=== PATIENT | female | born 1955 | race Caucasian/White ===

== ENCOUNTER 2016-05-29 11:57 | Outpatient (CLI) | payer BC | END 2016-05-29 11:58 | disposition home or self-care (01) | DX: R53.83 Other fatigue (principal); B19.20 Unspecified viral hepatitis C without hepatic coma; R74.8 Abnormal levels of other serum enzymes ==

== ENCOUNTER 2016-07-19 08:00 | Outpatient (CLI) | payer BC | END 2016-07-19 23:59 | DX: R30.0 Dysuria (principal) ==

== ENCOUNTER 2017-04-02 11:47 | Emergency (ER) | payer BC ==
--- NOTE | 2017-04-02 13:34 | ED Physician Documentation ---
History of Present Illness - Stated complaint Stated Complaint: L RIB PX - Chief complaint Chief Complaint: General - Additonal information Additional information: 61-year-old female presents to the emergency department with left lower chest pain 1 week after following and landing on a gun rack. Her pain was initially more bearable, she did not have a sneezing fit that worsened her pain 2 days ago. She has had no fevers, no productive cough. She was prescribed [place] by her primary care doctor has taken 1 pill at night for the last few days with minimal relief of symptoms. She is not taking any other medications. Review of Systems Constitutional: denies: Fever Cardiac: reports: Other (left lateral chest pain, no substernal chest pain) Respiratory: reports: Other (no pain with inspiration). denies: Cough GI: reports: Other (Vomiting 1 3 nights ago). denies: Abdominal Pain : denies: Hematuria Neurologic: reports: Other (No injuries other than the left lower chest pain) PD PAST MEDICAL HISTORY - Past Medical History Cardiovascular: Hypertension Respiratory: None Neuro: None Endocrine/Autoimmune: None GI: GERD, Hepatitis : Chronic bladder infection HEENT: None Psych: None Musculoskeletal: None Derm: None - Past Surgical History Past Surgical History: Yes General: Cholecystectomy, Appendectomy, Colonoscopy Ortho: Knee replacement HEENT: Other - Present Medications Home Medications: Ambulatory Orders Medication Instructions Recorded Confirmed Amlodipine Besylate/Benazepril 1 cap PO DAILY 10/17/13 04/02/17 [Amlodipine-Benazepril 10-20 mg] Pantoprazole Sodium [Protonix] 40 mg PO DAILY 10/17/13 04/02/17 Ledipasvir/Sofosbuvir [Harvoni 1 tab PO DAILY 02/15/16 04/02/17 90-400 mg Tablet] Levothyroxine Sodium 100 mcg PO DAILY 02/15/16 04/02/17 Albuterol Sulf [Ventolin Hfa 1 - 2 puffs INH Q4HR PRN #1 inhaler 02/22/16 Inhaler] Azithromycin [Zithromax] 250 mg PO DAILY #6 tablet 02/22/16 04/02/17 HYDROcod/ACETAM 5/325 [[place] 5/325] 1 - 2 ea PO Q6H PRN #15 tablet 02/22/1604/07 Dexamethasone [Decadron] 4 mg PO DAILY #5 tablet 02/24/16 04/02/17 Naproxen 375 mg PO BID #14 tablet 02/24/16 04/02/17 oxyCODONE [Roxicodone] 1 - 2 mg PO Q6H #25 tablet 02/24/16 04/02/17 Lidocaine Patch 5% [Lidoderm Patch] 1 patch TOP DAILY #10 patch 04/02/17 Naproxen [Naprosyn] 500 mg PO BID PRN #20 tablet 04/02/17 Oxycodone HCl/Acetaminophen 1 - 2 each PO Q6H PRN #14 tablet 04/02/17 [Percocet 5-325 mg Tablet] - Allergies Allergies/Adverse Reactions: Allergies Allergy/AdvReac Type Severity Reaction Status Date / Time dextromethorphan Allergy Hallucinati Verified 02/24/16 07:16 ons lisinopril AdvReac Intermediate COUGH Verified 02/24/16 07:16 hydrocodone bitartrate * AdvReac Itching Verified 02/24/16 07:16 [From Vicodin] - Social History Does the pt smoke?: No Smoking Status: Never smoker Does the pt drink ETOH?: Yes Does the pt have substance abuse?: No - Immunizations Immunizations are current?: Yes - POLST Patient has POLST: No PD ED PE NORMAL - Vitals Vital signs reviewed: Yes - General General: Alert and oriented X 3, No acute distress - HEENT HEENT: Atraumatic - Neck Neck: Supple, no meningeal sign - Cardiac Cardiac: RRR, No murmur - Respiratory Respiratory: Clear bilaterally, Other (Left lower chest with tenderness to palpation, Mild overlying bruising.) - Abdomen Abdomen: Normal bowel sounds, Soft, Non tender, Non distended - Derm Derm: Warm and dry - Extremities Extremities: No deformity - Neuro Neuro: Alert and oriented X 3 - Psych Psych: Normal mood, Normal affect Results - Vitals Vitals: Vital Signs - 24 hr 04/02/17 04/02/17 04/02/17 11:54 14:04 14:24 Temperature 36.3 C L Heart Rate 82 74 Respiratory 20 18 Rate Blood Pressure 171/106 H 148/123 H 144/93 H O2 Saturation 97 98 Oxygen O2 Source Room air - Rads (name of study) ribs, chest left Radiology: Final report received (No evidence of displaced rib fracture. No focal infiltrate or pneumothorax.), EMP read indepedently, See rad report, Other PD MEDICAL DECISION MAKING - ED course ED course: 61-year-old female presents 1 week after rib injury with ongoing pain, pain was acutely worsened by a sneezing fit.Patient has been taking minimal medications for pain control, she was provided with an incentive spirometer, a Lidoderm patch, IM morphine and Toradol.Chest x-ray without pneumothorax or pneumonia or effusion. Rib fractures not seen however area of pain is an area of many overlying structures. Discussed with patient likelihood that she does have rib fracture and treatment for this as well as expectant management and return precautions for signs of pneumonia.While these are lower ribs I do not suspect that she has an intra- abdominal injury given the chronicity of her symptoms and injury at this time and lack of abdominal tenderness and normal vital signs with the exception of hypertension likely related to pain. She also has not taken any of her antihypertensives today. Departure - Departure Disposition: 01 Home, Self Care Clinical Impression: Rib injury Condition: Good Instructions: Spirometer Incentive, Fx Rib Follow-Up: Rere Mcwilliams MD [Primary Care Provider] - Prescriptions: Lidocaine Patch 5% [Lidoderm Patch] 1 patch TOP DAILY #10 patch Naproxen [Naprosyn] 500 mg PO BID PRN #20 tablet PRN Reason: Pain Oxycodone HCl/Acetaminophen [Percocet 5-325 mg Tablet] 1 - 2 each PO Q6H PRN # 14 tablet PRN Reason: Pain Comments: You may have a rib fracture or just a severe bruise. These often are not seen on chest x-ray. However the treatment is the same, you should have your pain under control enough that you can take deep breaths with your incentive spirometer at least every hour while you are awake. This will help to prevent pneumonia and help you measure your pain. Return to the emergency department if you develop signs of pneumonia such as fever or cough, different chest pain, difficulty breathing or significant abdominal pain.
[2017-04-02] MEDS ORDERED: MORPHINE 10 MG/ML VIAL IM STA (14:11)
[2017-04-02] MEDS ORDERED: LIDOCAINE PATCH 5% TOP PRN (14:11)
[2017-04-02] MEDS ORDERED: KETOROLAC 30 MG/ML VIAL IM STA (14:12)
[2017-04-02] MEDS ORDERED: ACETAMINOPHEN 500 MG TABLET PO STA (14:13)
--- NOTE | 2017-04-02 14:14 | XRAY Preliminary Report ---
Exam: XR RIBS W/PA CHEST LT IMPRESSION: No evidence of displaced rib fracture. No focal infiltrate or pneumothorax. [facility] SITE ID: [id number]
--- NOTE | 2017-04-02 14:16 | XRAY Report ---
EXAM: LEFT RIB RADIOGRAPHY EXAM DATE: 04/02/2017 02:03 PM. CLINICAL HISTORY: Rib pain. COMPARISON: 03/25/2017. TECHNIQUE: 1 view of the chest and 2 views of the ribs. FINDINGS: Bones: No evidence of displaced rib fracture. Lungs: No evidence of acute infiltrate or effusion. No pneumothorax. Mediastinum: Heart and mediastinal contours are unremarkable. Other: There is a moderate-sized hiatal hernia. IMPRESSION: No evidence of displaced rib fracture. No focal infiltrate or pneumothorax. [facility] Referring Provider Line: [phone] SITE ID: [id number]
[2017-04-02 14:24] VITALS: BP 144/93
[2017-04-02] MEDS ORDERED: KETOROLAC 30 MG/ML VIAL ONE (14:32)
[2017-04-02] MEDS ORDERED: ACETAMINOPHEN 325 MG TABLET PO ONE (14:32)
[2017-04-02] MEDS ORDERED: MORPHINE 10 MG/ML VIAL ONE (14:32)
[2017-04-02] MEDS ORDERED: LIDOCAINE PATCH 5% TOP ONE (14:33)
[2017-04-02] MEDS ORDERED: ACETAMINOPHEN 500 MG TABLET PO ONE (14:42)
== END 2017-04-02 15:10 | disposition home or self-care (01) ==
LOC: ED 11:47
DX: S29.9XXA Unspecified injury of thorax, initial encounter (principal); W19.XXXA Unspecified fall, initial encounter; W22.09XA Striking against other stationary object, initial encounter; I10 Essential (primary) hypertension
CPT/HCPCS: 71101; 96372; 99283; 99284; A9270

== ENCOUNTER 2017-09-23 08:00 | Outpatient (CLI) | payer BC | END 2017-09-23 08:01 | disposition home or self-care (01) | LOC: LAB.R 08:00 | PROVIDERS: ATTEND Physician Assistant | DX: N39.0 Urinary tract infection, site not specified (principal) | CPT/HCPCS: 87077; 87086; 87181 ==

== ENCOUNTER 2018-05-28 08:59 | Outpatient (CLI) | payer BC ==
[2018-05-28 12:12] LABS: BASOPHILS # (AUTO) 0.1 10^3/uL (0.0-0.1); BASOPHILS % (AUTO) 1.3 %; EOSINOPHILS # (AUTO) 0.4 10^3/uL (0.0-0.7); HGB - HEMOGLOBIN 14.5 g/dL (12.0-16.0); LYMPHOCYTES # (AUTO) 1.9 10^3/uL (1.5-3.5); MEAN CORPUSCULAR HEMOGLOBIN 31.3 pg (27.0-31.0); MEAN CORPUSCULAR HGB CONC 34.2 g/dL (32.0-36.0); MEAN CORPUSCULAR VOLUME 91.5 fL (81.0-99.0); MEAN PLATELET VOLUME 9.1 fL (7.9-10.8); MONOCYTES # (AUTO) 0.5 10^3/uL (0.0-1.0); MONOCYTES % (AUTO) 6.7 %; NEUTROPHILS # (AUTO) 4.7 10^3/uL (1.5-6.6); PLT - PLATELET COUNT 253 10^3/uL (130-450); RED BLOOD COUNT 4.63 10^6/uL (4.20-5.40); RED CELL DISTRIBUTION WIDTH 13.2 % (12.0-15.0); WHITE BLOOD COUNT 7.6 x10^3/uL (4.8-10.8)
[2018-05-28 12:51] LABS: ALBUMIN/GLOBULIN RATIO 0.9 (1.0-2.2); ALKALINE PHOSPHATASE 53 IU/L (42-121); ALT ALANINE AMINOTRANSFERASE 30 IU/L (10-60); AST ASPARTATE AMINOTRANSFERASE 45 IU/L (10-42); BILIRUBIN,TOTAL 0.8 mg/dL (0.2-1.0); BUN - BLOOD UREA NITROGEN 10 mg/dL (6-20); CALCIUM 9.1 mg/dL (8.5-10.3); CARBON DIOXIDE - CO2 25 mmol/L (21-32); CHLORIDE 98 mmol/L (101-111); CHOL/HDL RATIO 4.2 (<4.4); CHOLESTEROL 215 mg/dL; CREATININE 0.7 mg/dL (0.4-1.0); GFR - MDRD 84 (>89); GLUCOSE 110 mg/dL (70-100); HDL CHOLESTEROL 51 mg/dL; LDL CHOLESTEROL,CALCULATED 110 mg/dL; LDL/HDL RATIO 2.2 (<4.4); SODIUM 139 mmol/L (135-145); TOTAL PROTEIN 8.5 g/dL (6.7-8.2); VLDL CHOLESTEROL 54 mg/dL
[2018-05-28 12:54] LABS: HB2 TOTAL 15.8 g/dL; HEMOGLOBIN A1C 0.48 g/dL; HEMOGLOBIN A1C % 4.9 % (4.6-6.2)
== END 2018-05-28 09:00 | disposition home or self-care (01) ==
LOC: LAB.WCP 08:59
PROVIDERS: ATTEND Family Medicine
DX: I10 Essential (primary) hypertension (principal); D50.9 Iron deficiency anemia, unspecified; E03.9 Hypothyroidism, unspecified; R73.09 Other abnormal glucose
CPT/HCPCS: 36415; 80053; 80061; 83036; 83721; 84443; 85025

== ENCOUNTER 2020-04-04 07:00 | Outpatient (CLI) | payer BC ==
[2020-04-04 12:53] LABS: BASOPHILS # (AUTO) 0.1 10^3/uL (0.0-0.1); BASOPHILS % (AUTO) 1.1 %; EOSINOPHILS # (AUTO) 0.3 10^3/uL (0.0-0.7); EOSINOPHILS % (AUTO) 3.5 %; HGB - HEMOGLOBIN 15.3 g/dL (12.0-16.0); LYMPHOCYTES # (AUTO) 1.9 10^3/uL (1.5-3.5); LYMPHOCYTES % (AUTO) 25.7 %; MEAN CORPUSCULAR HEMOGLOBIN 31.1 pg (27.0-31.0); MEAN CORPUSCULAR HGB CONC 33.1 g/dL (32.0-36.0); MEAN CORPUSCULAR VOLUME 93.9 fL (81.0-99.0); MEAN PLATELET VOLUME 11.1 fL (7.9-10.8); MONOCYTES # (AUTO) 0.5 10^3/uL (0.0-1.0); MONOCYTES % (AUTO) 7.1 %; NEUTROPHILS # (AUTO) 4.6 10^3/uL (1.5-6.6); NEUTROPHILS % (AUTO) 62.3 %; PLT - PLATELET COUNT 263 10^3/uL (130-450); RED BLOOD COUNT 4.92 10^6/uL (4.20-5.40); RED CELL DISTRIBUTION WIDTH 12.8 % (12.0-15.0); WHITE BLOOD COUNT 7.4 x10^3/uL (4.8-10.8)
[2020-04-04 13:20] LABS: ALBUMIN 4.2 g/dL (3.2-5.5); ALBUMIN/GLOBULIN RATIO 1.1 (1.0-2.2); BILIRUBIN,TOTAL 0.9 mg/dL (0.2-1.0); CREATININE 0.7 mg/dL (0.4-1.0); TOTAL PROTEIN 8.2 g/dL (6.7-8.2)
[2020-04-04 13:26] LABS: FERRITIN 36.5 ng/mL (11.0-306.8)
[2020-04-04 14:10] LABS: FREE T4 (FREE THYROXINE) 1.15 ng/dL (0.58-1.64)
[2020-04-04 18:43] LABS: CREATININE,URINE 276.1 mg/dL; MICROALBUM/CREATININE RATIO,UR 2.5 ug/mg (<30.0); MICROALBUMIN,URINE 0.7 mg/dL (0-300.0)
== END 2020-04-04 23:59 | disposition home or self-care (01) ==
LOC: EDBD → LAB.WCP 07:00
PROVIDERS: ATTEND Family Medicine
DX: R74.8 Abnormal levels of other serum enzymes (principal); D50.9 Iron deficiency anemia, unspecified; E03.9 Hypothyroidism, unspecified; B19.20 Unspecified viral hepatitis C without hepatic coma; R73.03 Prediabetes
CPT/HCPCS: 36415; 80053; 81599; 82043; 82570; 82607; 82728; 83036; 83540; 84439; 84443; 84466; 85025; 87517; 87521; 87522; 87902

== ENCOUNTER 2020-04-14 07:15 | Outpatient (CLI) | payer BC ==
[2020-04-14 14:51] LABS: MICROALBUM/CREATININE RATIO,UR 3.5 ug/mg (<30.0); MICROALBUMIN,URINE 0.3 mg/dL (0-300.0)
== END 2020-04-14 23:59 | disposition home or self-care (01) ==
LOC: LAB.R 07:15
PROVIDERS: ATTEND Family Medicine
DX: R73.03 Prediabetes (principal)
CPT/HCPCS: 82043; 82570

== ENCOUNTER 2021-01-25 08:00 | Outpatient (CLI) | payer BC | END 2021-01-25 23:59 | disposition home or self-care (01) | LOC: LAB.WCP 08:00 | PROVIDERS: ATTEND Family Medicine | DX: N39.0 Urinary tract infection, site not specified (principal) | CPT/HCPCS: 87077; 87086; 87181 ==

== ENCOUNTER 2021-05-16 09:30 | Outpatient (CLI) | payer BC ==
[2021-05-16 12:26] LABS: BASOPHILS # (AUTO) 0.1 10^3/uL (0.0-0.1); BASOPHILS % (AUTO) 1.5 %; EOSINOPHILS # (AUTO) 0.3 10^3/uL (0.0-0.7); HCT - HEMATOCRIT 34.7 % (37.0-47.0); LYMPHOCYTES # (AUTO) 1.3 10^3/uL (1.5-3.5); LYMPHOCYTES % (AUTO) 19.7 %; MEAN CORPUSCULAR HEMOGLOBIN 29.4 pg (27.0-31.0); MEAN CORPUSCULAR HGB CONC 31.7 g/dL (32.0-36.0); MEAN CORPUSCULAR VOLUME 92.8 fL (81.0-99.0); MEAN PLATELET VOLUME 11.1 fL (7.9-10.8); MONOCYTES # (AUTO) 0.5 10^3/uL (0.0-1.0); MONOCYTES % (AUTO) 7.7 %; NEUTROPHILS # (AUTO) 4.4 10^3/uL (1.5-6.6); NEUTROPHILS % (AUTO) 65.8 %; PLT - PLATELET COUNT 193 10^3/uL (130-450); RED BLOOD COUNT 3.74 10^6/uL (4.20-5.40); RED CELL DISTRIBUTION WIDTH 16.6 % (12.0-15.0); WHITE BLOOD COUNT 6.6 x10^3/uL (4.8-10.8)
[2021-05-16 14:00] LABS: % IRON SATURATION 5 % (20-50); ALBUMIN/GLOBULIN RATIO 0.9 (1.0-2.2); ALKALINE PHOSPHATASE 64 IU/L (42-121); ALT ALANINE AMINOTRANSFERASE 17 IU/L (10-60); AST ASPARTATE AMINOTRANSFERASE 48 IU/L (10-42); BUN - BLOOD UREA NITROGEN 13 mg/dL (6-20); CARBON DIOXIDE - CO2 26 mmol/L (21-32); CHLORIDE 98 mmol/L (101-111); CHOL/HDL RATIO 3.7 (<4.4); CHOLESTEROL 208 mg/dL; CREATININE 0.7 mg/dL (0.4-1.0); GFR - MDRD 84 (>89); GLUCOSE 148 mg/dL (70-100); HDL CHOLESTEROL 56 mg/dL; IRON 23 ug/dL (28-170); LDL CHOLESTEROL,CALCULATED 109 mg/dL; LDL/HDL RATIO 1.9 (<4.4); POTASSIUM 3.3 mmol/L (3.5-5.0); SODIUM 137 mmol/L (135-145); TOTAL IRON BINDING CAPACITY 494 ug/dL (250-450); TOTAL PROTEIN 8.6 g/dL (6.7-8.2); TRANSFERRIN 353 mg/dL (192-382); TRIGLYCERIDES 215 mg/dL; VLDL CHOLESTEROL 43 mg/dL
[2021-05-16 14:59] LABS: THYROID STIMULATING HORMONE 23.05 uIU/mL (0.34-5.60)
[2021-05-16 15:04] LABS: FERRITIN 21.5 ng/mL (11.0-306.8)
[2021-05-16 18:48] LABS: FREE T4 (FREE THYROXINE) 0.82 ng/dL (0.58-1.64)
[2021-05-16 19:46] LABS: ESTIMATED AVERAGE GLUCOSE 108 mg/dL (70-100); HEMOGLOBIN A1c% 5.4 % (4.27-6.07)
== END 2021-05-16 23:59 | disposition home or self-care (01) ==
LOC: LAB.WCP 09:30
PROVIDERS: ATTEND Physician Assistant Medical
DX: R74.8 Abnormal levels of other serum enzymes (principal); D50.9 Iron deficiency anemia, unspecified; E03.9 Hypothyroidism, unspecified; R73.03 Prediabetes
CPT/HCPCS: 36415; 80053; 80061; 82728; 83036; 83540; 83721; 84439; 84443; 84466; 85025

== ENCOUNTER 2021-07-10 13:54 | Outpatient (CLI) | payer BC ==
[2021-07-10 17:37] LABS: BASOPHILS # (AUTO) 0.1 10^3/uL (0.0-0.1); BASOPHILS % (AUTO) 1.3 %; EOSINOPHILS # (AUTO) 0.2 10^3/uL (0.0-0.7); EOSINOPHILS % (AUTO) 2.8 %; HCT - HEMATOCRIT 31.4 % (37.0-47.0); HGB - HEMOGLOBIN 9.8 g/dL (12.0-16.0); LYMPHOCYTES # (AUTO) 1.3 10^3/uL (1.5-3.5); LYMPHOCYTES % (AUTO) 24.6 %; MEAN CORPUSCULAR HEMOGLOBIN 26.7 pg (27.0-31.0); MEAN CORPUSCULAR HGB CONC 31.2 g/dL (32.0-36.0); MEAN CORPUSCULAR VOLUME 85.6 fL (81.0-99.0); MONOCYTES # (AUTO) 0.5 10^3/uL (0.0-1.0); MONOCYTES % (AUTO) 8.3 %; NEUTROPHILS # (AUTO) 3.4 10^3/uL (1.5-6.6); NEUTROPHILS % (AUTO) 62.8 %; PLT - PLATELET COUNT 190 10^3/uL (130-450); RED BLOOD COUNT 3.67 10^6/uL (4.20-5.40); RED CELL DISTRIBUTION WIDTH 16.3 % (12.0-15.0); WHITE BLOOD COUNT 5.5 x10^3/uL (4.8-10.8)
[2021-07-10 17:56] LABS: BILIRUBIN,TOTAL 0.7 mg/dL (0.2-1.0); CALCIUM 9.3 mg/dL (8.5-10.3); CREATININE 0.7 mg/dL (0.4-1.0); POTASSIUM 3.7 mmol/L (3.5-5.0); TOTAL PROTEIN 8.1 g/dL (6.7-8.2)
[2021-07-10 18:14] LABS: THYROID STIMULATING HORMONE 0.67 uIU/mL (0.34-5.60)
== END 2021-07-10 13:55 | disposition home or self-care (01) ==
LOC: LAB.N 13:54
PROVIDERS: ATTEND Physician Assistant Medical
DX: E03.9 Hypothyroidism, unspecified (principal); R74.8 Abnormal levels of other serum enzymes; D50.9 Iron deficiency anemia, unspecified
CPT/HCPCS: 36415; 80053; 84443; 85025

== ENCOUNTER 2021-08-13 12:57 | Outpatient (CLI) | payer BC | END 2021-08-13 12:58 | disposition critical access hospital (66) | LOC: EMS 12:57 | DX: R62.7 Adult failure to thrive (principal); R45.851 Suicidal ideations; R53.1 Weakness; F32.A Depression, unspecified; R52 Pain, unspecified; S40.011A Contusion of right shoulder, initial encounter; M25.562 Pain in left knee; W19.XXXA Unspecified fall, initial encounter; Z72.89 Other problems related to lifestyle | CPT/HCPCS: A0425; A0429 ==

== ENCOUNTER 2021-08-13 13:14 | Emergency (ER) | payer BC ==
--- NOTE | 2021-08-13 13:41 | ED Physician Documentation ---
History of Present Illness - Stated complaint Stated Complaint: GEN WEAKNESS - Chief complaint Chief Complaint: General - History obtained from History obtained from: Patient - Additonal information Additional information: 63-year-old woman with history of alcoholism, depression, hypothyroidism presents by ambulance. The main thing she seeks evaluation for his depression. She has had a lot of loss recently and this culminated in her brother dying by suicide a week ago. She has been drinking a lot of alcohol and not sleeping well. This is despite taking escitalopram and trazodone. She has had a couple of alcohol fueled falls in the last week, one on Saturday where she injured her right clavicle and and possibly her neck and one a couple of days ago where she injured her left knee. She notes a significant weight loss in the last 6 to 8 months associated with hair falling out and some dry skin. She had abnormal thyroid studies a few months ago but was not compliant with her thyroid medication but has been compliant with her thyroid medication since then but stopped it about 5 days ago. Review of Systems Ten Systems: 10 systems reviewed and negative Constitutional: denies: Fever, Chills Eyes: reports: Reviewed and negative Ears: reports: Reviewed and negative Nose: reports: Reviewed and negative PD PAST MEDICAL HISTORY - Past Medical History Cardiovascular: Hypertension Respiratory: None Endocrine/Autoimmune: None GI: GERD, Hepatitis : Chronic bladder infection HEENT: None Psych: None Musculoskeletal: None Derm: None - Past Surgical History Past Surgical History: Yes General: Cholecystectomy, Appendectomy, Colonoscopy Ortho: Knee replacement HEENT: Other - Present Medications Home Medications: Ambulatory Orders Medication Instructions Recorded Confirmed Amlodipine Besylate/Benazepril 1 cap PO DAILY 10/17/13 04/02/17 [Amlodipine-Benazepril 10-20 mg] Pantoprazole Sodium [Protonix] 40 mg PO DAILY 10/17/13 04/02/17 Ledipasvir/Sofosbuvir [[place] 1 tab PO DAILY 02/15/16 04/02/17 90-400 mg Tablet] Levothyroxine Sodium 100 mcg PO DAILY 02/15/16 04/02/17 Albuterol Sulf [Ventolin Hfa 1 - 2 puffs INH Q4HR PRN #1 inhaler 02/22/16 04/02/17 Inhaler] Azithromycin [Zithromax] 250 mg PO DAILY #6 tablet 02/22/16 04/02/17 HYDROcod/ACETAM 5/325 [[place] 5/325] 1 - 2 ea PO Q6H PRN #15 tablet 02/22/16 04/02/17 Naproxen 375 mg PO BID #14 tablet 02/24/16 04/02/17 dexAMETHasone [Decadron] 4 mg PO DAILY #5 tablet 02/24/16 04/02/17 oxyCODONE [Roxicodone] 1 - 2 mg PO Q6H #25 tablet 02/24/16 04/02/17 Lidocaine Patch 5% [Lidoderm Patch] 1 patch TOP DAILY #10 patch 04/02/17 Naproxen [Naprosyn] 500 mg PO BID PRN #20 tablet 04/02/17 Oxycodone HCl/Acetaminophen 1 - 2 each PO Q6H PRN #14 tablet 04/02/17 [Percocet 5-325 mg Tablet] Nitrofurantoin [Macrobid] 1 cap PO BID #10 cap 08/13/21 - Allergies Allergies/Adverse Reactions: Allergies Allergy/AdvReac Type Severity Reaction Status Date / Time dextromethorphan Allergy Hallucinati Verified 02/24/16 07:16 ons lisinopril AdvReac Intermediate COUGH Verified 02/24/16 07:16 hydrocodone bitartrate * AdvReac Itching Verified 02/24/16 07:16 [From Vicodin] - Social History Does the pt smoke?: No Smoking Status: Never smoker Does the pt drink ETOH?: Yes Does the pt have substance abuse?: No - Immunizations Immunizations are current?: Yes - POLST Patient has POLST: No PD ED PE NORMAL - Vitals Vital signs reviewed: Yes - General General: Alert and oriented X 3 (Slightly slow slurred speech and bloodshot eyes with nystagmus consistent with alcohol intoxication) - HEENT HEENT: PERRL - Neck Neck: Supple, no meningeal sign, No bony TTP - Cardiac Cardiac: RRR, No murmur - Respiratory Respiratory: No respiratory distress, Clear bilaterally - Abdomen Abdomen: Normal bowel sounds, Soft, Non tender - Derm Derm: Normal color, Warm and dry - Extremities Extremities: Other (Significant bruising and tenderness about the right clavicle unable to range the right shoulder. Mild effusion and tenderness of the left knee without bruising) - Neuro Neuro: Alert and oriented X 3, Normal speech Eye Opening: Spontaneous Motor: Obeys Commands Verbal: Oriented GCS Score: 15 Results - Vitals Vitals: Vital Signs - 24 hr 08/13/21 08/13/21 08/13/21 13:27 13:31 15:31 Temperature 36.9 C 36.9 C Heart Rate 81 81 91 Respiratory 18 18 17 Rate Blood Pressure 132/79 H 132/79 H 133/82 H O2 Saturation 100 100 100 Oxygen O2 Source Room air - Labs Labs: Laboratory Tests 08/13/21 08/13/21 08/13/21 14:45 14:45 15:01 WBC 7.8 RBC 3.90 L Hgb 10.0 L Hct 31.9 L MCV 81.8 MCH 25.6 L MCHC 31.3 L RDW 16.2 H Plt Count 161 MPV 8.6 Neut # (Auto) 5.6 Lymph # (Auto) 1.3 L [place] # (Auto) 0.6 Eos # (Auto) 0.2 Baso # (Auto) 0.1 Absolute Nucleated RBC 0.00 Nucleated RBC % 0.0 Sodium 137 Potassium 3.6 Chloride 98 L Carbon Dioxide 20 L Anion Gap 19.0 H BUN 15 Creatinine 0.9 Estimated GFR (MDRD) 63 L Glucose 101 H Calcium 9.2 Total Bilirubin 0.9 AST 37 ALT 16 Alkaline Phosphatase 53 Total Protein 8.6 H Albumin 4.0 Globulin 4.6 H Albumin/Globulin Ratio 0.9 L Lipase 44 TSH 6.33 H Salicylates < 6.0 Acetaminophen < 10 L Ethyl Alcohol 26.8 - Rads (name of study) CT head and c spine Radiology: EMP read contemporaneously (CT head and C-spine, no evidence of traumatic injury. Atrophy and chronic ischemic change in the head and reversal of cervical lordosis and grade 1 anterior spondylolisthesis at C6-C7) PD MEDICAL DECISION MAKING - ED course ED course: 63-year-old woman presents by ambulance. She has had several falls lately in the setting of alcoholism. She is also quite depressed from recent loss. She had some symptoms that could have been referable to hyperthyroidism but she is mildly hypothyroidism noting that she has been not completely compliant with her thyroid medication and she was advised to continue this at the current dose and recheck with her physician. She was found to have a clavicular picture and placed in a sling and follow-up was advised. Seen by the social services director who counseled on outpatient counseling resources and alcohol resources. Patient felt too weak to go home and was offered a detention stay but after discussion with the social services director eventually declined that. She requested prescription painkillers. Given the ongoing alcoholism I discussed with her and her that I did not think was safe to prescribe prescription painkillers and that it would be safest if she stuck to [id number] pain medication. She then mentioned before discharge that she had urinary burning frequency and urgency. She was unable to provide a urine sample here but given the typical symptoms seems reasonable to treat her for cystitis. Departure - Departure Disposition: Home, Self Care Clinical Impression: Alcoholism, Fall, Clavicle fracture, sternal end Condition: Good Record reviewed to determine appropriate education?: Yes Instructions: ED Fx Clavicle, ED Alcohol Abuse Follow-Up: [facility] [Provider Group] Prescriptions: Nitrofurantoin [Macrobid] 1 cap PO BID #10 cap Comments: You were seen today for several falls associated with alcoholism. Thankfully the only major injury noted was a fracture at the end of your right clavicle. The treatment for this is basically staying in the sling and taking Tylenol as needed for pain and following up with orthopedics. Your major problem though is grief and depression related to recent losses. Follow the instructions of the social services director regarding follow-up and counseling. And the other major problem is alcoholism, you need to follow her instructions on that as well and abstain from alcohol. Return for new or worsening symptoms. I did send prescription for antibiotics for a bladder infection to [facility] in [place].
--- NOTE | 2021-08-13 14:22 | CT Report ---
PROCEDURE: CT cervical spine without contrast INDICATIONS: Trauma, pain TECHNIQUE: Noncontrast 3 mm thick sections acquired from the skull base to the T4 level. Sagittal and coronal r eformats were then constructed. For radiation dose reduction, the following was used: automated exp osure control, adjustment of mA and/or kV according to patient size. COMPARISON: None. FINDINGS: Image quality: Excellent. Alignment: There is reversal of the normal cervical lordosis as well as a grade 1 anterior spondyloli sthesis at C6-7. Bones: No fractures or dislocations. Visualized superior ribs are intact. Disc space narrowing not ed at C5-6, C6-7 as well as C3-4 with facet ankylosis and hypertrophic arthropathy these levels as we ll. Mild to moderate central stenosis C4-5 and C6-7 Soft tissues: Prevertebral soft tissues are normal in thickness. No paravertebral hematomas. No ap ical pneumothoraces. IMPRESSION: 1. Multilevel degenerative disc disease and arthropathy without fracture or traumatic malalignment. 2. Reversal of normal cervical lordosis and grade 1 anterior spondylolisthesis present at C6-7 Reviewed by: Theodore Castillo MD on 08/13/2021 1:21 PM SHARIF Approved by: Theodore Castillo MD on 08/13/2021 1:21 PM AKSUMIT Station ID: [id number]
--- NOTE | 2021-08-13 14:29 | CT Report ---
PROCEDURE: CT brain without contrast INDICATIONS: Trauma, pain TECHNIQUE: Noncontrast 4.5 mm thick angled axial sections acquired from the foramen magnum to the vertex. For r adiation dose reduction, the following was used: automated exposure control, adjustment of mA and/or kV according to patient size. COMPARISON: None. FINDINGS: Image quality: Excellent. CSF spaces: Basal cisterns are patent. No extra-axial fluid collections. Ventricles are normal in size and shape. Brain: No midline shift. No intracranial masses or hemorrhage. Pérez-white matter interface is norm al. Moderate atrophy and multifocal white matter chronic ischemic change noted. Atherosclerotic vasc ular calcification noted in the cavernous segments of both internal carotid arteries as well as the i ntradural vertebral arteries. Skull and face: Calvarium and visualized facial bones are intact, without suspicious lesions. Sinuses: Visualized sinuses and mastoids are clear. IMPRESSION: Atrophy and chronic ischemic change without acute hemorrhage or mass effect Reviewed by: Theodore Castillo MD on 08/13/2021 1:27 PM AKDT Approved by: Theodore Castillo MD on 08/13/2021 1:27 PM AKDT Station ID: [id number]
[2021-08-13] MEDS: THIAMINE INJ 100 MG in SODIUM CHLORIDE 0.9% 50 ML IV STA (15:05)
[2021-08-13 15:06] LABS: BASOPHILS # (AUTO) 0.1 10^3/uL (0.0-0.1); BASOPHILS % (AUTO) 0.9 %; EOSINOPHILS # (AUTO) 0.2 10^3/uL (0.0-0.7); EOSINOPHILS % (AUTO) 2.1 %; HCT - HEMATOCRIT 31.9 % (37.0-47.0); LYMPHOCYTES # (AUTO) 1.3 10^3/uL (1.5-3.5); LYMPHOCYTES % (AUTO) 17.3 %; MEAN CORPUSCULAR HEMOGLOBIN 25.6 pg (27.0-31.0); MEAN CORPUSCULAR HGB CONC 31.3 g/dL (32.0-36.0); MEAN CORPUSCULAR VOLUME 81.8 fL (81.0-99.0); MEAN PLATELET VOLUME 8.6 fL (7.9-10.8); MONOCYTES # (AUTO) 0.6 10^3/uL (0.0-1.0); MONOCYTES % (AUTO) 7.5 %; NEUTROPHILS # (AUTO) 5.6 10^3/uL (1.5-6.6); NEUTROPHILS % (AUTO) 71.8 %; PLT - PLATELET COUNT 161 10^3/uL (130-450); RED CELL DISTRIBUTION WIDTH 16.2 % (12.0-15.0); WHITE BLOOD COUNT 7.8 x10^3/uL (4.8-10.8)
[2021-08-13] MEDS: SODIUM CHLORIDE 0.9% 1,000 ML IV STA (15:07)
[2021-08-13] MEDS: KETOROLAC 15 MG/ML VIAL IVP STA (15:08)
[2021-08-13 15:21] LABS: ACETAMINOPHEN < 10 ug/mL (10-30); ALBUMIN/GLOBULIN RATIO 0.9 (1.0-2.2); ALKALINE PHOSPHATASE 53 IU/L (42-121); ALT ALANINE AMINOTRANSFERASE 16 IU/L (10-60); AST ASPARTATE AMINOTRANSFERASE 37 IU/L (10-42); BILIRUBIN,TOTAL 0.9 mg/dL (0.2-1.0); BUN - BLOOD UREA NITROGEN 15 mg/dL (6-20); CALCIUM 9.2 mg/dL (8.5-10.3); CARBON DIOXIDE - CO2 20 mmol/L (21-32); CHLORIDE 98 mmol/L (101-111); CREATININE 0.9 mg/dL (0.4-1.0); ETOH - ETHANOL 26.8 mg/dL; GFR - MDRD 63 (>89); GLUCOSE 101 mg/dL (70-100); LIPASE 44 U/L (22-51); POTASSIUM 3.6 mmol/L (3.5-5.0); SALICYLATE < 6.0 mg/dL; SODIUM 137 mmol/L (135-145); TOTAL PROTEIN 8.6 g/dL (6.7-8.2)
--- NOTE | 2021-08-13 15:24 | XRAY Report ---
PROCEDURE: Clavicle RT INDICATIONS: clavicle inj TECHNIQUE: 2 views of the clavicle were acquired. COMPARISON: None. FINDINGS: Bones: Transverse fracture through the distal clavicle noted with the superior displacement of the di stal fracture fragment Soft tissues: No suspicious soft tissue calcifications. IMPRESSION: Transverse distal clavicular fracture Reviewed by: Theodore Castillo MD on 08/13/2021 2:23 PM AKDT Approved by: Theodore Castillo MD on 08/13/2021 2:23 PM AKDT Station ID: [id number]
--- NOTE | 2021-08-13 15:25 | XRAY Report ---
PROCEDURE: Knee 4 View LT INDICATIONS: knee inj TECHNIQUE: 4 views of the left knee(s) were acquired. COMPARISON: None. FINDINGS: Bones: No fractures or dislocations. No suspicious bony lesions. Severe medial compartment joint s pace narrowing with marginal osteophyte present. Soft tissues: No joint effusion. No suspicious soft tissue calcifications. IMPRESSION: Severe osteoarthritis without fracture or joint effusion Reviewed by: Theodore Castillo MD on 08/13/2021 2:24 PM AKDT Approved by: Theodore Castillo MD on 08/13/2021 2:24 PM AKDT Station ID: [id number]
[2021-08-13 15:32] VITALS: BP 133/82
[2021-08-13] MEDS: NITROFURANTOIN MACRO 100 MG CAPSULE PO STA (16:12)
== END 2021-08-13 16:28 | disposition home or self-care (01) ==
LOC: EDUNIT# → ED 13:14
DX: F10.20 Alcohol dependence, uncomplicated (principal); S42.011A Anterior displaced fracture of sternal end of right clavicle, initial encounter for closed fracture; W19.XXXA Unspecified fall, initial encounter; Z20.822 Contact with and (suspected) exposure to COVID-19
CPT/HCPCS: 36415; 70450; 72125; 73000; 73564; 80053; 80307; 80320; 80329; 83690; 84443; 85025; 87635; 96374; 96375; 99284; A9270; J3411; J7040

== ENCOUNTER 2021-08-18 10:45 | Outpatient (CLI) | payer BC | END 2021-08-18 10:46 | disposition critical access hospital (66) | LOC: EMS 10:45 | DX: M79.641 Pain in right hand (principal); M25.531 Pain in right wrist | CPT/HCPCS: A0425; A0429 ==

== ENCOUNTER 2021-08-18 11:02 | Emergency (ER) | payer BC ==
[2021-08-18] MEDS ORDERED: DEXAMETHASONE 10 MG/ML VIAL PO STA (11:38)
[2021-08-18] MEDS ORDERED: CHERRY SYRUP 10 ML UDC PO ONE (11:38)
[2021-08-18] MEDS ORDERED: KETOROLAC 60 MG/2 ML VIAL IM STA (11:38)
--- NOTE | 2021-08-18 12:19 | XRAY Report ---
PROCEDURE: Wrist 4 View RT INDICATIONS: swelling pain no trauma TECHNIQUE: 4 views of the wrist were acquired. COMPARISON: None FINDINGS: Bones: Cortical irregularity involving dorsal aspect of proximal carpal bone concerning for subtle fr acture involving dorsal aspect of triquetrum suggests clinical correlation. No other fracture or disl ocation is noted Osteoarthritic changes are noted throughout right wrist. No suspicious bony lesions. Scaphoid view: Scaphoid is grossly intact. Soft tissues: Dorsal wrist soft tissue swelling is seen. No suspicious soft tissue calcifications. IMPRESSION: Finding is concerning for dorsal triquetral fracture with overlying soft tissue swelling. Clinical co rrelation is recommended. No other fracture or dislocation. Wrist joint osteoarthritis. Reviewed by: Alexandre Daigle MD on 08/18/2021 12:18 PM PDT Approved by: Alexandre Daigle MD on 08/18/2021 12:18 PM PDT Station ID: [id number]
[2021-08-18] MEDS ORDERED: HYDROmorphone 1 MG/ML CARPUJECT IM STA ×2 (12:38→13:22)
[2021-08-18] MEDS ORDERED: ONDANSETRON ODT 4 MG TABLET TL STA (12:38)
--- NOTE | 2021-08-18 13:26 | ED Physician Documentation ---
PD HPI UPPER EXT INJURY - Stated complaint Stated Complaint: R HAND PX - Chief complaint Chief Complaint: Ext Problem - History obtained from History obtained from: Patient, Family - History of Present Illness Location: Right, Wrist Type of injury: Other (unknown) Where injury occurred: Home Timing - onset: Last night Timing - duration: Hours Timing - details: Abrupt onset, Still present Improved by: Rest, Immobilization Worsened by: Moving, Palpating Associated symptoms: Swelling. No: Weakness, Numbness, Tingling Contributing factors: No: Anticoagulated, Prior ortho surgery Similar symptoms before: Diagnosis (fracture and carpal tunnel) Recently seen: Emergency Dept - Additonal information Additional information: 63-year-old Brenda Leary has had some recent losses including the Saturday hanging of her younger brother. She became distraught over this her drinking was more excessive than usual and she had a fall in her home fracturing her right clavicle. She went home she stopped drinking she has been on no pain medications and this morning she awoke with severe pain in her right wrist with any movement at all. She had not had significant injury to this area previously. She does not recall injuring this. She also denies any significant symptoms of alcohol withdrawal. The patient though does admit that she spent the week in bed. Her has helped her to and from the commode. This morning her pain is intolerable she is moaning and any little movement causes worsening of her pain. Review of Systems Constitutional: denies: Fever Eyes: denies: Decreased vision Ears: denies: Ear pain Nose: denies: Congestion Throat: denies: Sore throat Cardiac: denies: Chest pain / pressure, Palpitations Respiratory: denies: Dyspnea GI: denies: Abdominal Pain, Nausea, Vomiting, Constipation, Diarrhea : denies: Dysuria, Frequency Skin: reports: Other (ecchymosis to the right clavicle area). denies: Rash Musculoskeletal: reports: Extremity pain, Joint pain, Extremity swelling. denies: Neck pain, Back pain Neurologic: denies: Generalized weakness, Focal weakness, Numbness PD PAST MEDICAL HISTORY - Past Medical History Cardiovascular: Hypertension Respiratory: None Endocrine/Autoimmune: None GI: GERD, Hepatitis : Chronic bladder infection HEENT: None Psych: None Musculoskeletal: None Derm: None - Past Surgical History Past Surgical History: Yes General: Cholecystectomy, Appendectomy, Colonoscopy Ortho: Knee replacement HEENT: Other - Present Medications Home Medications: Ambulatory Orders Medication Instructions Recorded Confirmed Amlodipine Besylate/Benazepril 1 cap PO DAILY 10/17/13 04/02/17 [Amlodipine-Benazepril 10-20 mg] Pantoprazole Sodium [Protonix] 40 mg PO DAILY 10/17/13 04/02/17 Ledipasvir/Sofosbuvir [Harvoni 1 tab PO DAILY 02/15/16 04/02/17 90-400 mg Tablet] Levothyroxine Sodium 100 mcg PO DAILY 02/15/16 04/02/17 Albuterol Sulf [Ventolin Hfa 1 - 2 puffs INH Q4HR PRN #1 inhaler 02/22/16 04/02/17 Inhaler] Azithromycin [Zithromax] 250 mg PO DAILY #6 tablet 02/22/16 04/02/17 HYDROcod/ACETAM 5/325 [[place] 5/325] 1 - 2 ea PO Q6H PRN #15 tablet 02/22/16 04/02/17 Naproxen 375 mg PO BID #14 tablet 02/24/16 04/02/17 dexAMETHasone [Decadron] 4 mg PO DAILY #5 tablet 02/24/16 04/02/17 oxyCODONE [Roxicodone] 1 - 2 mg PO Q6H #25 tablet 02/24/16 04/02/17 Lidocaine Patch 5% [Lidoderm Patch] 1 patch TOP DAILY #10 patch 04/02/17 Naproxen [Naprosyn] 500 mg PO BID PRN #20 tablet 04/02/17 Oxycodone HCl/Acetaminophen 1 - 2 each PO Q6H PRN #14 tablet 04/02/17 [Percocet 5-325 mg Tablet] Nitrofurantoin [Macrobid] 1 cap PO BID #10 cap 08/13/21 Oxycodone HCl/Acetaminophen 1 - 2 each PO Q6H PRN #14 tablet 08/18/21 [Percocet 5-325 mg Tablet] - Allergies Allergies/Adverse Reactions: Allergies Allergy/AdvReac Type Severity Reaction Status Date / Time dextromethorphan Allergy Hallucinati Verified 08/18/21 11:10 ons lisinopril AdvReac Intermediate COUGH Verified 08/18/21 11:10 hydrocodone bitartrate * AdvReac Itching Verified 08/18/21 11:10 [From Vicodin] - Social History Does the pt smoke?: No Smoking Status: Never smoker Does the pt drink ETOH?: Yes Does the pt have substance abuse?: No - Immunizations Immunizations are current?: Yes - POLST Patient has POLST: No PD ED PE NORMAL - Vitals Vital signs reviewed: Yes (Hypertensive) - General General: Alert and oriented X 3, Well developed/nourished, Other (63-year-old female moaning and crying in pain) - HEENT HEENT: Atraumatic, PERRL, EOMI - Neck Neck: Supple, no meningeal sign - Cardiac Cardiac: RRR, No murmur - Respiratory Respiratory: No respiratory distress, Clear bilaterally - Abdomen Abdomen: Soft, Non tender - Derm Derm: Normal color, Warm and dry, No rash - Extremities Extremities: Other (There is significant ecchymosis to the right shoulder girdle area consistent with the recent clavicle fracture. There is no significant pain at the elbow. The wrist is tender there is some swelling dorsally. There is significant TTP over the dorsal wrist near the junction of 1st & 2nd metacar) - Neuro Neuro: Alert and oriented X 3, environmental aide 2-12 intact, No motor deficit, No sensory deficit, Normal speech Eye Opening: Spontaneous Motor: Obeys Commands Verbal: Oriented GCS Score: 15 - Psych Psych: Normal mood, Normal affect Results - Vitals Vitals: Vital Signs - 24 hr 08/18/21 08/18/21 11:06 13:00 Temperature 37.1 C Heart Rate 92 80 Respiratory 20 18 Rate Blood Pressure 128/103 H 134/80 H O2 Saturation 100 100 Oxygen O2 Source Room air - Rads (name of study) wrist Radiology: Prelim report reviewed (Impression: Finding is concerning for dorsal triquetral fracture with overlying soft tissue swelling. Clinical correlation is recommended. No other fracture or dislocation. Wrist joint osteoarthritis.), EMP read indepedently, See rad report Procedures - Splint (location) right wrist Splint applied by: Tech Type of splint: Fiberglass, Thumb spica Other: Patient tolerated well, No complications, Neurovascular intact, Good alignment PD MEDICAL DECISION MAKING - ED course Complexity details: reviewed old records, reviewed results, re-evaluated patient, considered differential, d/w patient, d/w family ED course: 63-year-old alcoholic female who has stopped drinking has had a recent fall and clavicle fracture injuring herself significantly and she has stopped drinking. She woke this morning with severe pain in her right wrist and she has exquisite pain I thought maybe she had gout when I first evaluated her and we took an x- ray which showed a triquetral fracture which is subtle and she has specific point tenderness directly over that area. I am uncertain how she fractured this but it does appear fractured and she is placed into a thumb spica splint and given a dose of Dilaudid IM. The patient's pain appeared completely out of control and out of proportion to the fracture. I am concerned that she may have developed some complex regional pain syndrome with a fracture of the clavicle the cessation of drinking and the new fracture. We were able to provide enough pain relief for the patient to get control of her pain and I have asked the patient to continue to be aggressive about her pain management. We will prescribe her 14 Percocet and I have asked her to follow-up with her primary if she needs more medication. She will follow-up with orthopedics as previously planned. Departure - Departure Disposition: Home, Self Care Clinical Impression: Right wrist fracture Qualifiers: Encounter type: initial encounter Fracture type: closed Qualified Code(s): S62.101A - Fracture of unspecified carpal bone, right wrist, initial encounter for closed fracture Condition: Stable Instructions: ED Fx Wrist General Follow-Up: Bailee Bailon PA-C [Provider Admit Priv/Credential] - Juarez Inman MD [Provider Admit Priv/Credential] - Prescriptions: Oxycodone HCl/Acetaminophen [Percocet 5-325 mg Tablet] 1 - 2 each PO Q6H PRN #14 tablet PRN Reason: pain Comments: Brenda, today it looks like you have a subtle fracture in your wrist and the recommendation is to wear the splint and follow-up with the orthopedic doctor for casting. Your pain appears to be completely out of control when you arrived to the emergency department and we have provided additional pain relief to control the pain. My recommendation is to be consistent with your administration of your pain medication and stay on top of this pain. Follow-up with DAVID Bailon for referral to the orthopedic doctor. Medication has been e- scribed to [facility] in [place].
[2021-08-18 13:53] VITALS: BP 119/80
== END 2021-08-18 13:57 | disposition home or self-care (01) ==
LOC: EDUNIT# → ED 11:02
DX: S62.111A Displaced fracture of triquetrum [cuneiform] bone, right wrist, initial encounter for closed fracture (principal); X58.XXXA Exposure to other specified factors, initial encounter
CPT/HCPCS: 29125; 73110; 96372; 99283; A9270; J1170; Q0162

== ENCOUNTER 2021-08-22 14:30 | Outpatient (CLI) | payer BC ==
--- NOTE | 2021-08-22 16:32 | XRAY Report ---
PROCEDURE: Clavicle RT INDICATIONS: RIGHT CLAVICLE FRACTURE TECHNIQUE: 2 views of the clavicle were acquired. COMPARISON: 08/13/2021 FINDINGS: Bones: No change in moderately displaced distal clavicular fracture. No suspicious bony lesions. Soft tissues: No suspicious soft tissue calcifications. IMPRESSION: No change in distal clavicular fracture. Reviewed by: Simon Coates MD on 08/22/2021 4:30 PM PDT Approved by: Simon Coates MD on 08/22/2021 4:30 PM PDT Station ID: [id number]
== END 2021-08-22 23:59 | disposition home or self-care (01) ==
LOC: DI.WOS 14:30
PROVIDERS: ATTEND Orthopaedic Surgery
DX: S42.031A Displaced fracture of lateral end of right clavicle, initial encounter for closed fracture (principal)

== ENCOUNTER 2021-09-02 09:44 | Outpatient (CLI) | payer BC ==
--- NOTE | 2021-09-02 10:15 | XRAY Report ---
PROCEDURE: Ribs w/PA Chest RT INDICATIONS: RIB PAIN, RIGHT TECHNIQUE: 3 views of the left ribs were acquired, along with a single view chest. COMPARISON: 04/02/2017 FINDINGS: Surgical changes and devices: None. Bones and chest wall: There is a mildly displaced fracture of the left anterolateral seventh rib. Mil dly to moderately displaced fracture of the left anterolateral sixth rib. No suspicious bony lesions. Overlying soft tissues appear unremarkable. Lungs and pleura: No pneumothorax. Small left pleural effusion.. Moderate left basilar airspace opac ity is present. Mediastinum: Mediastinal contours appear normal. Heart size is normal. IMPRESSION: 1. Left rib fractures. 2. Left basilar atelectasis versus pneumonia. 3. Small left pleural effusion. Reviewed by: Simon Coates MD on 09/02/2021 10:14 AM PDT Approved by: Simon Coates MD on 09/02/2021 10:14 AM PDT Station ID: [id number]
== END 2021-09-02 09:45 | disposition home or self-care (01) ==
LOC: DI.N 09:44
PROVIDERS: ATTEND Physician Assistant
DX: S22.42XA Multiple fractures of ribs, left side, initial encounter for closed fracture (principal); J90 Pleural effusion, not elsewhere classified; R91.8 Other nonspecific abnormal finding of lung field

== ENCOUNTER 2021-09-19 07:43 | Outpatient (CLI) | payer BC ==
--- NOTE | 2021-09-19 14:47 | XRAY Report ---
PROCEDURE: Clavicle RT INDICATIONS: CLAVICLE FX TECHNIQUE: 2 views of the clavicle were acquired. COMPARISON: 08/22/2021. FINDINGS: Bones: Distal right clavicle fracture is not definitely changed compared to the prior exam. The dista l fracture fragment remains slightly displaced superiorly. Soft tissues: 2 cm calcification projects over the right glenohumeral joint which may represent intra -articular loose body. IMPRESSION: Stable alignment of distal right clavicle fracture. Reviewed by: Kaycee Hernandez MD, PhD on 09/19/2021 2:46 PM PDT Approved by: Kaycee Hernandez MD, PhD on 09/19/2021 2:46 PM PDT Station ID: [id number]
--- NOTE | 2021-09-19 15:24 | XRAY Report ---
PROCEDURE: Wrist 3 View RT INDICATIONS: WRIST FX TECHNIQUE: 3 views of the wrist were acquired. COMPARISON: 3 views of the wrist dated 08/18/2021 FINDINGS: Bones: No acute fracture or dislocation. No periosteal reaction or callus to suggest healing fracture . Scaphoid view: The scaphoid appears intact. Soft tissues: No suspicious soft tissue calcifications. IMPRESSION: 1. No radiographic findings to suggest acute or subacute fracture. Reviewed by: Michell Castro MD on 09/19/2021 3:22 PM PDT Approved by: Michell Castro MD on 09/19/2021 3:22 PM PDT Station ID: [id number]
--- NOTE | 2021-09-19 15:33 | XRAY Report ---
PROCEDURE: Shoulder 3 View RT INDICATIONS: SHOUDLER PX TECHNIQUE: 4 views of the shoulder were acquired. COMPARISON: Views of the right clavicle dated 08/22/2021. FINDINGS: Bones: Distal right clavicular fracture is redemonstrated. Fracture fragments are in unchanged anatom ic alignment. There is likely early callus now visualized. No new fracture or dislocation. Soft tissues: A soft tissue calcification is associated with the anterior aspect of the shoulder join t suggesting either calcific tendinitis or an intra-articular body. In retrospect, this was present o n the chest film dated 07/20/2016 is markedly increased in size. There is a calcification which is eit her projected over the proximal humeral diaphysis or is within the bone. IMPRESSION: 1. Stable right clavicular fracture with early interval healing. 2. Questionable right calcific tendinitis versus intra-articular body. A second soft tissue calcifica tion versus bone calcification is noted within the proximal right humeral diaphysis. Dedicated views of the humerus are recommended to further characterize this finding. Reviewed by: Michell Castro MD on 09/19/2021 3:31 PM PDT Approved by: Michell Castro MD on 09/19/2021 3:31 PM PDT Station ID: [id number]
== END 2021-09-19 23:59 | disposition home or self-care (01) ==
LOC: DI.WOS 07:43
PROVIDERS: ATTEND Orthopaedic Surgery
DX: S42.031D Displaced fracture of lateral end of right clavicle, subsequent encounter for fracture with routine healing (principal)

== ENCOUNTER 2021-10-17 08:00 | Outpatient (CLI) | payer BC ==
--- NOTE | 2021-10-17 17:12 | XRAY Report ---
PROCEDURE: Clavicle RT INDICATIONS: CLAVICLE FX TECHNIQUE: 2 views of the clavicle were acquired. COMPARISON: Right clavicle 09/19/2021, 09/02/2021 FINDINGS: Bones: Mildly displaced distal right clavicular fracture unchanged in alignment. Very minimal appeara nce of bridging osteophytes are noted, as fracture lucencies are slightly less prominent. Unchanged a ppearance of calcification overlying the right humeral head. Similar smaller appearance is noted over lying the proximal humeral diaphysis. These are stable dating to 09/02/21. No further remote exams inc luding this region of interest are available for comparison. Soft tissues: No suspicious soft tissue calcifications. IMPRESSION: Unchanged alignment of distal clavicular fracture as above. Areas of increased density noted overlying the humeral head as well as proximal humeral diaphysis as above, unchanged compared to 09/02/2021. No further remote exams are available for comparison. Etiolog y is uncertain. Given second focus, it is unlikely related to joint space loose bodies. Recommend cor relation to any history of malignancy and bone scan is recommended for further evaluation. Reviewed by: Gayathri Gamble MD on 10/17/2021 5:11 PM PDT Approved by: Gayathri Gamble MD on 10/17/2021 5:11 PM PDT Station ID: [id number]
--- NOTE | 2021-10-19 08:25 | XRAY Report ---
PROCEDURE: Wrist 3 View RT INDICATIONS: WRIST FX TECHNIQUE: 3 views of the wrist were acquired. COMPARISON: 09/19/2021 FINDINGS: No fracture or dislocation demonstrated. Normal alignment of the carpal arcs. No significant arthriti c or degenerative changes. No suspicious lytic or blastic osseous lesion. Regional soft tissues are n ormal. IMPRESSION: No acute finding. Reviewed by: Phillip Greco MD on 10/19/2021 8:24 AM PDT Approved by: Phillip Greco MD on 10/19/2021 8:24 AM PDT Station ID: [id number]
== END 2021-10-17 23:59 | disposition home or self-care (01) ==
LOC: DI.WOS 08:00
PROVIDERS: ATTEND Orthopaedic Surgery
DX: S62.1 Fracture of other and unspecified carpal bone(s) (principal); S42.031D Displaced fracture of lateral end of right clavicle, subsequent encounter for fracture with routine healing

== ENCOUNTER 2021-10-20 15:20 | Outpatient (CLI) | payer BC ==
--- NOTE | 2021-10-20 17:38 | DEXA Report ---
PROCEDURE: Dexa Spine and/or Hip INDICATIONS: POST MENOPAUSAL TECHNIQUE: Dual energy x-ray absorptiometry (DXA) was performed on a [employer] System. Regions measur ed are the AP Spine, femoral neck, and if needed forearm. COMPARISON: None. FINDINGS: Lumbar Spine: Bone Mineral Density 1.159 g/cm/cm,T score -0.2. Left Hip: Bone Mineral Density 0.978 g/cm/cm,T score -0.2. Left Femoral Neck: Bone Mineral Density 0.993 g/cm/cm, T score -0.3. (T score greater or equal to -1.0: NORMAL) (T score from -1.1 to -2.4: OSTEOPENIA) (T score less than or equal to -2.5 to: OSTEOPOROSIS) Impression: Normal bone mineral density. Patients with diagnosis of osteoporosis or osteopenia should have regular bone mineral density assess ment. For those eligible for Medicare, routine testing is allowed once every 2 years. Testing frequ ency can be increased for patients who have rapidly progressing disease or for those who are receivin g medical therapy to restore bone mass. Reviewed by: Alexandre Daigle MD on 10/20/2021 5:37 PM PDT Approved by: Alexandre Daigle MD on 10/20/2021 5:37 PM PDT Station ID: [id number]
== END 2021-10-20 15:21 | disposition home or self-care (01) ==
LOC: DI 15:20
PROVIDERS: ATTEND Physician Assistant
DX: Z78.0 Asymptomatic menopausal state (principal)

== ENCOUNTER → 2022-01-16 | Outpatient (CLI) | payer BC | END | disposition critical access hospital (66) | LOC: EMS 18:46 | DX: S99.911A Unspecified injury of right ankle, initial encounter (principal); X58.XXXA Exposure to other specified factors, initial encounter; Y92.009 Unspecified place in unspecified non-institutional (private) residence as the place of occurrence of the external cause | CPT/HCPCS: A0425; A0429 ==

== ENCOUNTER 2022-07-16 07:04 | Outpatient (CLI) | payer MEDICARE, BC ==
[2022-07-16 13:05] LABS: BASOPHILS # (AUTO) 0.1 10^3/uL (0.0-0.1); BASOPHILS % (AUTO) 1.9 %; EOSINOPHILS # (AUTO) 0.4 10^3/uL (0.0-0.7); EOSINOPHILS % (AUTO) 7.3 %; HCT - HEMATOCRIT 27.4 % (37.0-47.0); HGB - HEMOGLOBIN 7.8 g/dL (12.0-16.0); LYMPHOCYTES # (AUTO) 1.9 10^3/uL (1.5-3.5); LYMPHOCYTES % (AUTO) 36.3 %; MEAN CORPUSCULAR HEMOGLOBIN 21.2 pg (27.0-31.0); MEAN CORPUSCULAR HGB CONC 28.5 g/dL (32.0-36.0); MEAN CORPUSCULAR VOLUME 74.5 fL (81.0-99.0); MEAN PLATELET VOLUME 10.5 fL (7.9-10.8); MONOCYTES # (AUTO) 0.4 10^3/uL (0.0-1.0); MONOCYTES % (AUTO) 8.3 %; NEUTROPHILS # (AUTO) 2.4 10^3/uL (1.5-6.6); PLT - PLATELET COUNT 277 10^3/uL (130-450); RED BLOOD COUNT 3.68 10^6/uL (4.20-5.40); RED CELL DISTRIBUTION WIDTH 15.5 % (12.0-15.0); WHITE BLOOD COUNT 5.3 x10^3/uL (4.8-10.8)
[2022-07-16 13:41] LABS: THYROID STIMULATING HORMONE 15.09 uIU/mL (0.34-5.60)
[2022-07-16 13:55] LABS: ALBUMIN 3.9 g/dL (3.2-5.5); BILIRUBIN,TOTAL 0.4 mg/dL (0.2-1.0); CALCIUM 9.1 mg/dL (8.5-10.3); CREATININE 0.8 mg/dL (0.4-1.0); POTASSIUM 3.4 mmol/L (3.5-5.0)
[2022-07-16 14:10] LABS: FREE T4 (FREE THYROXINE) 0.98 ng/dL (0.58-1.64)
[2022-07-16 15:22] LABS: ESTIMATED AVERAGE GLUCOSE 108 mg/dL (70-100); HEMOGLOBIN A1c% 5.4 % (4.27-6.07)
== END 2022-07-16 07:05 | disposition home or self-care (01) ==
LOC: LAB.N 07:04
PROVIDERS: ATTEND Physician Assistant Medical
DX: D50.9 Iron deficiency anemia, unspecified (principal); R73.03 Prediabetes; E03.9 Hypothyroidism, unspecified; B19.20 Unspecified viral hepatitis C without hepatic coma
CPT/HCPCS: 36415; 80053; 82607; 82728; 83036; 83540; 84439; 84443; 84466; 85025; 87522

== ENCOUNTER 2022-07-26 07:04 | Outpatient (CLI) | payer MEDICARE, BC ==
[2022-07-26 11:35] LABS: ABSOLUTE RETICS # AUTO 0.045 10^6/uL (0.020-0.110); HGB - HEMOGLOBIN 8.1 g/dL (12.0-16.0); MEAN CORPUSCULAR HEMOGLOBIN 20.9 pg (27.0-31.0); MEAN CORPUSCULAR HGB CONC 28.9 g/dL (32.0-36.0); MEAN CORPUSCULAR VOLUME 72.4 fL (81.0-99.0); MEAN PLATELET VOLUME 10.4 fL (7.9-10.8); RED BLOOD COUNT 3.87 10^6/uL (4.20-5.40); RED CELL DISTRIBUTION WIDTH 15.5 % (12.0-15.0); RETICULOCYTE COUNT % (AUTO) 1.15 % (0.5-2.3)
[2022-07-26 12:22] LABS: % IRON SATURATION 5 % (20-50); IRON 23 ug/dL (28-170); TOTAL IRON BINDING CAPACITY 497 ug/dL (250-450); TRANSFERRIN 355 mg/dL (192-382)
== END 2022-07-26 07:05 | disposition home or self-care (01) ==
LOC: LAB.N 07:04
PROVIDERS: ATTEND Nurse Practitioner
DX: D64.9 Anemia, unspecified (principal)
CPT/HCPCS: 36415; 81599; 82746; 83020; 83540; 84466; 85027; 85045

== ENCOUNTER 2022-09-14 10:36 | Outpatient (CLI) | payer MEDICARE, BC ==
[2022-09-14 14:28] LABS: % IRON SATURATION 28 % (20-50); IRON 104 ug/dL (28-170); TOTAL IRON BINDING CAPACITY 378 ug/dL (250-450); TRANSFERRIN 270 mg/dL (192-382)
== END 2022-09-14 10:37 | disposition home or self-care (01) ==
LOC: LAB.N 10:36
PROVIDERS: ATTEND Nurse Practitioner
DX: D50.9 Iron deficiency anemia, unspecified (principal)
CPT/HCPCS: 36415; 82728; 83540; 84466

== ENCOUNTER 2022-10-18 08:00 | Outpatient (CLI) | payer MEDICARE, BC ==
[2022-10-18 17:58] LABS: BILIRUBIN,URINE NEGATIVE (NEGATIVE); GLUCOSE, URINE (UA) NEGATIVE (NEGATIVE); KETONES,URINE (UA) NEGATIVE (NEGATIVE); LEUKOCYTE ESTERASE, URINE SMALL (NEGATIVE); NITRITE,URINE NEGATIVE (NEGATIVE); OCCULT BLOOD,URINE NEGATIVE (NEGATIVE); PH,URINE 5.5 PH (5.0-7.5); PROTEIN,URINE NEGATIVE (NEGATIVE); UROBILINOGEN,URINE 0.2 (NORMAL) E.U./dL (NORMAL)
[2022-10-18 18:05] LABS: BACTERIA,URINE Moderate /HPF (None Seen); CLARITY,URINE SL. CLOUDY (CLEAR); RBC,URINE 0-5 /HPF (0-5); SQUAMOUS EPITHELIAL CELL,UR FEW Squamous (<= Few); WBC,URINE >25 /HPF (0-5)
== END 2022-10-18 23:59 | disposition home or self-care (01) ==
LOC: LAB.WCP 08:00
PROVIDERS: ATTEND Nurse Practitioner
DX: R30.0 Dysuria (principal)
CPT/HCPCS: 81001; 87077; 87086; 87181

== ENCOUNTER 2023-02-06 12:37 | Outpatient (CLI) | payer MEDICARE, BC ==
[2023-02-06 20:25] LABS: ESTIMATED AVERAGE GLUCOSE 91 mg/dL (70-100); HEMOGLOBIN A1c% 4.8 % (4.27-6.07)
== END 2023-02-06 12:38 | disposition home or self-care (01) ==
LOC: LAB.N 12:37
PROVIDERS: ATTEND Orthopaedic Surgery Adult Reconstructive Orthopaedic Surgery
DX: Z01.812 Encounter for preprocedural laboratory examination (principal); R77.0 Abnormality of albumin; E55.9 Vitamin D deficiency, unspecified; R73.9 Hyperglycemia, unspecified
CPT/HCPCS: 36415; 80048; 82306; 83036; 84134; 85025

== ENCOUNTER 2023-02-08 11:24 | Outpatient (CLI) | payer MEDICARE, BC | END 2023-02-08 11:25 | disposition home or self-care (01) | LOC: LAB 11:24 → RT 11:25 | PROVIDERS: ATTEND Orthopaedic Surgery Adult Reconstructive Orthopaedic Surgery | DX: Z01.818 Encounter for other preprocedural examination (principal) | CPT/HCPCS: 93005 ==

== ENCOUNTER 2023-02-08 11:51 | Emergency (ER) | payer MEDICARE, BC ==
[2023-02-08] MEDS ORDERED: diltiaZEM INJ 5 MG/ML VIAL IVP STA ×3 (12:00→12:53)
--- NOTE | 2023-02-08 12:02 | ED Physician Documentation ---
History of Present Illness - Stated complaint Stated Complaint: IRREGULAR EKG,GEN WEAKNESS,DIZZINESS - Chief complaint Chief Complaint: Cardiac - History obtained from History obtained from: Patient - Additonal information Additional information: 64-year-old woman with history of hypertension, currently off her antihypertensives as her blood pressure has been well controlled lately, hypothyroidism on Synthroid. She has had a cough for the last few days and feeling just kind of "crummy." And today she felt like her heart rate was fast. She came to the hospital today for preoperative EKG as she is planning to have a TKR at [facility] in the near future. The prehospital EKG showed a significant tachycardia with a rate of about 150 and she was referred to the emergency department. She has no chest pain, no trouble breathing. She just feels the cough for a few days and then the rapid heart rate today. She has no history of arrhythmias. PD PAST MEDICAL HISTORY - Past Medical History Cardiovascular: Hypertension Respiratory: None Endocrine/Autoimmune: None GI: GERD, Hepatitis : Chronic bladder infection HEENT: None Psych: None Musculoskeletal: None Derm: None - Past Surgical History Past Surgical History: Yes General: Cholecystectomy, Appendectomy, Colonoscopy Ortho: Knee replacement HEENT: Other - Present Medications Home Medications: Ambulatory Orders Medication Instructions Recorded Confirmed Amlodipine Besylate/Benazepril 1 cap PO DAILY 10/17/13 12/07/22 [Amlodipine-Benazepril 10-20 mg] Pantoprazole Sodium [Protonix] 40 mg PO DAILY 10/17/13 12/07/22 Ledipasvir/Sofosbuvir [[place] 1 tab PO DAILY 02/15/16 12/07/22 90-400 mg Tablet] Levothyroxine Sodium 125 mcg PO DAILY 02/15/16 12/07/22 Albuterol Sulf [Ventolin Hfa 1 - 2 puffs INH Q4HR PRN #1 inhaler 02/22/16 12/07/22 Inhaler] Azithromycin [Zithromax] 250 mg PO DAILY #6 tablet 02/22/16 12/07/22 HYDROcod/ACETAM 5/325 [[place] 5/325] 1 - 2 ea PO Q6H PRN #15 tablet 02/22/16 12/07/22 Naproxen 375 mg PO BID #14 tablet 02/24/16 12/07/22 dexAMETHasone [Decadron] 4 mg PO DAILY #5 tablet 02/24/16 12/07/22 Lidocaine Patch 5% [Lidoderm Patch] 1 patch TOP DAILY #10 patch 04/02/17 12/07/22 Naproxen [Naprosyn] 500 mg PO BID PRN #20 tablet 04/02/17 12/07/22 Oxycodone HCl/Acetaminophen 1 - 2 each PO Q6H PRN #14 tablet 04/02/17 12/07/22 [Percocet 5-325 mg Tablet] Nitrofurantoin [Macrobid] 1 cap PO BID #10 cap 08/13/21 12/07/22 Oxycodone HCl/Acetaminophen 1 - 2 each PO Q6H PRN #14 tablet 08/18/21 12/07/22 [Percocet 5-325 mg Tablet] Escitalopram [Lexapro] 10 mg PO DAILY 09/05/22 12/07/22 traZODone [Desyrel] 100 mg PO DAILY 09/05/22 12/07/22 - Allergies Allergies/Adverse Reactions: Allergies Allergy/AdvReac Type Severity Reaction Status Date / Time dextromethorphan Allergy Hallucinati Verified 02/08/23 12:01 ons lisinopril AdvReac Intermediate COUGH Verified 02/08/23 12:01 hydrocodone bitartrate * AdvReac Itching Verified 02/08/23 12:01 [From Vicodin] - Social History Does the pt smoke?: No Smoking Status: Never smoker Does the pt drink ETOH?: Yes Does the pt have substance abuse?: No - Immunizations Immunizations are current?: Yes - POLST Patient has POLST: No PD ED PE NORMAL - Vitals Vital signs reviewed: Yes - General General: Alert and oriented X 3, No acute distress - HEENT HEENT: PERRL, EOMI - Neck Neck: Supple, no meningeal sign, No bony TTP - Cardiac Cardiac: Other (Very rapid, seemingly regular but could be "pseudonormalization.") - Respiratory Respiratory: No respiratory distress, Clear bilaterally - Abdomen Abdomen: Non tender - Extremities Extremities: No edema, No calf tenderness / cord - Neuro Neuro: Alert and oriented X 3, Normal speech Results - Vitals Vitals: Vital Signs - 24 hr 02/08/23 02/08/23 02/08/23 11:58 15:12 15:15 Temperature 37.0 C Heart Rate 160 H 132 H 71 Respiratory 20 14 18 Rate Blood Pressure 157/136 H 137/77 H 129/89 H O2 Saturation 99 99 97 If not protocol 2 : Oxygen Flow, liters/minute 02/08/23 02/08/23 02/08/23 15:20 15:25 15:30 Temperature Heart Rate 69 70 71 Respiratory 15 14 20 Rate Blood Pressure 115/81 H 128/84 H 118/94 H O2 Saturation 98 100 96 If not protocol 2 2 : Oxygen Flow, liters/minute Oxygen O2 Source Room air - EKG (time done) 1228 EKG releavant findings:: EKG personally interpreted by author of this note. Relevant findings are: Rate: Rate (enter#) (156) Rhythm: Other (Rapid and regular, I think likely a flutter given the rate) Climax: LAD QRS: Normal Ischemia: ST depression. No: ST elevation c/w ischemia Computer interpretation: Agree with computer 1403 EKG releavant findings:: EKG personally interpreted by author of this note. Relevant findings are: Rate: Rate (enter#) (118) Rhythm: Atrial fibrillation Climax: LAD Intervals: Prolonged QT, Other (IVCD) Ischemia: Normal ST segments 1524 EKG releavant findings:: EKG personally interpreted by author of this note. Relevant findings are: Rate: Rate (enter#) (68) Rhythm: NSR Climax: LAD Intervals: Normal [place] QRS: Normal Ischemia: Normal ST segments. No: ST elevation c/w ischemia, ST depression - Labs Labs: Laboratory Tests 02/08/23 02/08/23 02/08/23 12:05 12:05 12:10 WBC 9.6 RBC 5.07 Hgb 14.6 Hct 42.9 MCV 84.6 MCH 28.8 MCHC 34.0 RDW 13.3 Plt Count 260 MPV 10.1 Neut # (Auto) 5.9 Lymph # (Auto) 2.7 [place] # (Auto) 0.8 Eos # (Auto) 0.1 Baso # (Auto) 0.1 Absolute Nucleated RBC 0.00 Nucleated RBC % 0.0 PT 12.4 INR 1.1 Sodium 137 Potassium 3.1 L Chloride 100 L Carbon Dioxide 25 Anion Gap 12.0 BUN 12 Creatinine 0.7 Estimated GFR (MDRD) 84 L Glucose 91 Calcium 9.9 Magnesium 1.2 L Total Bilirubin 0.5 AST 14 ALT 13 Alkaline Phosphatase 75 Total Protein 8.6 Albumin 4.6 Globulin 4.0 Albumin/Globulin Ratio 1.2 - Rads (name of study) Single view chest x-ray is unremarkable Relevant Findings:: Final report received, EMP independent interpretation of test Procedures - Procedural sedation Sedation prep: Informed consent, Time out completed, Last meal (yesterday), PE performed, ASA 1 - healthy Sedation Medications: propofol (70mg IV x1) Mallampati classification: I Patient status during sedation: Responds to tactile Sedation recovery: Recovered uneventfully Time in sedation (Minutes): 12 - Cardioversion - Major 1 @ 1514 Time of attempt: 15:14 Indication: Tachyarrhythmia Risks, benefits, alternatives explained to: Pt Prep: IV, vehicle monitor technician, Pulse ox CS via: Pads, AP approach Sync: 100j Post cardioversion rhythm: NSR Performed by: ED MD Medical Decision Making - ED course ED course: 64-year-old woman presents with symptomatic A-fib starting this morning from outpatient EKG preop for TKR in March. Work-up in the emergency department demonstrates rapid A-fib on the monitor and CBC, INR, and CMP all normal save low magnesium and potassium which were repleted IV. She was rate controlled with diltiazem, 2 doses of 20 mg and then procainamide drip was used which did not result in cardioversion and subsequently because she consented for electrical cardioversion which went well and she was converted normal sinus rhythm on the first shock. Departure - Departure Disposition: 01 Home, Self Care Clinical Impression: Hypokalemia, Hypomagnesemia Atrial fibrillation Qualifiers: Atrial fibrillation type: paroxysmal Qualified Code(s): I48.0 - Paroxysmal atrial fibrillation Condition: Stable Record reviewed to determine appropriate education?: Yes Instructions: Atrial Fibrillation Dc Comments: You were seen today for new onset rapid atrial fibrillation. You were given medications to slow it down and try to try to get into rhythm, but subsequently we did go ahead and shock you out of it. Follow-up with your primary care physician, consider cardiology referral and echocardiography. Unfortunately this may delay your upcoming knee replacement, so try to get followed up as soon as possible. Return for new or worsening symptoms. Do not drive today. You should start taking a baby aspirin a day for clot prevention until you follow-up. Your doctor or subsequently a mangle feeder may want to put you on a stronger blood thinner eventually. Forms: PCP List
[2023-02-08 12:16] LABS: BASOPHILS # (AUTO) 0.1 10^3/uL (0.0-0.1); BASOPHILS % (AUTO) 0.9 %; EOSINOPHILS # (AUTO) 0.1 10^3/uL (0.0-0.7); EOSINOPHILS % (AUTO) 1.5 %; HCT - HEMATOCRIT 42.9 % (37.0-47.0); HGB - HEMOGLOBIN 14.6 g/dL (12.0-16.0); LYMPHOCYTES # (AUTO) 2.7 10^3/uL (1.5-3.5); MEAN CORPUSCULAR HEMOGLOBIN 28.8 pg (27.0-31.0); MEAN CORPUSCULAR VOLUME 84.6 fL (81.0-99.0); MEAN PLATELET VOLUME 10.1 fL (7.9-10.8); MONOCYTES # (AUTO) 0.8 10^3/uL (0.0-1.0); MONOCYTES % (AUTO) 7.9 %; NEUTROPHILS # (AUTO) 5.9 10^3/uL (1.5-6.6); NEUTROPHILS % (AUTO) 61.5 %; PLT - PLATELET COUNT 260 10^3/uL (130-450); RED BLOOD COUNT 5.07 10^6/uL (4.20-5.40); RED CELL DISTRIBUTION WIDTH 13.3 % (12.0-15.0); WHITE BLOOD COUNT 9.6 x10^3/uL (4.8-10.8)
[2023-02-08 12:23] LABS: INR 1.1 (0.8-1.2); PT - PROTHROMBIN TIME 12.4 secs (9.9-12.6)
[2023-02-08] MEDS ORDERED: PROCAINAMIDE 1,000 MG in SODIUM CHLORIDE 0.9% 240 ML IV STA (12:29)
[2023-02-08 12:39] LABS: ALBUMIN 4.6 g/dL (3.2-5.5); ALBUMIN/GLOBULIN RATIO 1.2 (1.0-2.2); BILIRUBIN,TOTAL 0.5 mg/dL (0.2-1.0); CALCIUM 9.9 mg/dL (8.5-10.3); CREATININE 0.7 mg/dL (0.6-1.3); MAGNESIUM 1.2 mg/dL (1.7-2.3); POTASSIUM 3.1 mmol/L (3.5-4.5); TOTAL PROTEIN 8.6 g/dL (6.4-8.9)
[2023-02-08] MEDS ORDERED: MAGNESIUM SULFATE 2 GRAM 2 GM/50 ML BAG IV ONE (12:50)
[2023-02-08] MEDS ORDERED: SODIUM CHLORIDE 0.9% 1,000 ML IV STA (12:50)
[2023-02-08] MEDS ORDERED: POTASSIUM CHLOR 10 MEQ/100 ML 10 MEQ/100 ML BAG IV ONE (12:50)
--- NOTE | 2023-02-08 13:16 | XRAY Report ---
PROCEDURE: Chest 1 View X-Ray INDICATIONS: cough TECHNIQUE: One view of the chest was acquired. COMPARISON: 04/02/2017. FINDINGS: Surgical changes and devices: None. Lungs and pleura: No pleural effusions or pneumothorax. Lungs are clear. Mediastinum: Mediastinal contours appear normal. Heart size is normal. Bones and chest wall: No suspicious bony lesions. Overlying soft tissues appear unremarkable. IMPRESSION: No acute cardiopulmonary process. Reviewed by: Chito Wong MD on 02/08/2023 1:14 PM PDT Approved by: Chito Wong MD on 02/08/2023 1:14 PM PDT Station ID: [id number]
[2023-02-08] MEDS ORDERED: PROPOFOL 200 MG/20 ML VIAL IVP STA (14:26)
[2023-02-08 15:41] VITALS: O2SAT 96
[2023-02-08 16:26] VITALS: BP 130/86
== END 2023-02-08 16:25 | disposition home or self-care (01) ==
LOC: ED 11:51
DX: I48.0 Paroxysmal atrial fibrillation (principal); E87.6 Hypokalemia; E83.42 Hypomagnesemia; Z79.899 Other long term (current) drug therapy
CPT/HCPCS: 36415; 71045; 80053; 83735; 85025; 85610; 92960; 93005; 96365; 96366; 96368; 96375; 96376; 99152; 99285; J2690; 94770

== ENCOUNTER 2023-03-18 14:31 | Outpatient (CLI) | payer MEDICARE, BC ==
[2023-03-18 14:52] LABS: BASOPHILS % (AUTO) 0.7 %; EOSINOPHILS # (AUTO) 0.3 10^3/uL (0.0-0.7); EOSINOPHILS % (AUTO) 4.8 %; HCT - HEMATOCRIT 39.6 % (37.0-47.0); HGB - HEMOGLOBIN 12.6 g/dL (12.0-16.0); LYMPHOCYTES # (AUTO) 1.8 10^3/uL (1.5-3.5); LYMPHOCYTES % (AUTO) 33.5 %; MEAN CORPUSCULAR HEMOGLOBIN 28.7 pg (27.0-31.0); MEAN CORPUSCULAR HGB CONC 31.8 g/dL (32.0-36.0); MEAN CORPUSCULAR VOLUME 90.2 fL (81.0-99.0); MONOCYTES # (AUTO) 0.5 10^3/uL (0.0-1.0); NEUTROPHILS # (AUTO) 2.8 10^3/uL (1.5-6.6); NEUTROPHILS % (AUTO) 51.8 %; PLT - PLATELET COUNT 166 10^3/uL (130-450); RED BLOOD COUNT 4.39 10^6/uL (4.20-5.40); RED CELL DISTRIBUTION WIDTH 13.9 % (12.0-15.0); WHITE BLOOD COUNT 5.4 x10^3/uL (4.8-10.8)
[2023-03-18 16:44] LABS: ALBUMIN 4.2 g/dL (3.2-5.5); ALBUMIN/GLOBULIN RATIO 1.3 (1.0-2.2); BILIRUBIN,TOTAL 0.3 mg/dL (0.2-1.0); CALCIUM 9.6 mg/dL (8.5-10.3); CREATININE 1.1 mg/dL (0.6-1.3); MAGNESIUM 1.2 mg/dL (1.7-2.3); POTASSIUM 3.7 mmol/L (3.5-4.5); TOTAL PROTEIN 7.4 g/dL (6.4-8.9)
== END 2023-03-18 14:32 | disposition home or self-care (01) ==
LOC: LAB 14:31
PROVIDERS: ATTEND Nurse Practitioner
DX: E83.42 Hypomagnesemia (principal); J06.9 Acute upper respiratory infection, unspecified; E87.6 Hypokalemia
CPT/HCPCS: 36415; 80053; 83735; 85025

== ENCOUNTER 2023-07-16 08:12 | Outpatient (CLI) | payer MEDICARE, BC ==
[2023-07-16 12:05] LABS: BASOPHILS # (AUTO) 0.1 10^3/uL (0.0-0.1); BASOPHILS % (AUTO) 1.9 %; EOSINOPHILS # (AUTO) 0.3 10^3/uL (0.0-0.7); EOSINOPHILS % (AUTO) 6.8 %; HCT - HEMATOCRIT 40.8 % (37.0-47.0); LYMPHOCYTES # (AUTO) 1.8 10^3/uL (1.5-3.5); LYMPHOCYTES % (AUTO) 37.5 %; MEAN CORPUSCULAR HEMOGLOBIN 27.9 pg (27.0-31.0); MEAN CORPUSCULAR HGB CONC 31.9 g/dL (32.0-36.0); MEAN CORPUSCULAR VOLUME 87.6 fL (81.0-99.0); MEAN PLATELET VOLUME 10.8 fL (7.9-10.8); MONOCYTES # (AUTO) 0.4 10^3/uL (0.0-1.0); MONOCYTES % (AUTO) 9.3 %; NEUTROPHILS # (AUTO) 2.1 10^3/uL (1.5-6.6); NEUTROPHILS % (AUTO) 44.3 %; PLT - PLATELET COUNT 189 10^3/uL (130-450); RED BLOOD COUNT 4.66 10^6/uL (4.20-5.40); WHITE BLOOD COUNT 4.7 x10^3/uL (4.8-10.8)
[2023-07-16 12:19] LABS: ALBUMIN 4.1 g/dL (3.2-5.5); ALKALINE PHOSPHATASE 96 IU/L (42-121); ALT ALANINE AMINOTRANSFERASE 13 IU/L (10-60); AST ASPARTATE AMINOTRANSFERASE 17 IU/L (10-42); BILIRUBIN,TOTAL 0.6 mg/dL (0.2-1.0); BUN - BLOOD UREA NITROGEN 15 mg/dL (6-20); CALCIUM 9.6 mg/dL (8.5-10.3); CARBON DIOXIDE - CO2 29 mmol/L (21-32); CHLORIDE 102 mmol/L (101-111); CHOL/HDL RATIO 4.9 (<4.4); CHOLESTEROL 210 mg/dL; CREATININE 0.9 mg/dL (0.6-1.3); GFR - MDRD 63 (>89); GLUCOSE 105 mg/dL (74-104); HDL CHOLESTEROL 43 mg/dL; MAGNESIUM 1.3 mg/dL (1.7-2.3); POTASSIUM 3.4 mmol/L (3.5-4.5); PREALBUMIN 28 mg/dL (17-34); SODIUM 138 mmol/L (135-145); TOTAL PROTEIN 8.1 g/dL (6.4-8.9); TRIGLYCERIDES 462 mg/dL (48-352)
[2023-07-16 12:31] LABS: BILIRUBIN,URINE NEGATIVE (NEGATIVE); GLUCOSE, URINE (UA) NEGATIVE (NEGATIVE); KETONES,URINE (UA) NEGATIVE (NEGATIVE); LEUKOCYTE ESTERASE, URINE MODERATE (NEGATIVE); NITRITE,URINE POSITIVE (NEGATIVE); OCCULT BLOOD,URINE TRACE-INTA (NEGATIVE); PROTEIN,URINE TRACE mg/dL (NEGATIVE); UROBILINOGEN,URINE 0.2 (NORMAL) E.U./dL (NORMAL)
[2023-07-16 12:32] LABS: CLARITY,URINE CLOUDY (CLEAR)
[2023-07-16 12:46] LABS: RBC,URINE 0-5 /HPF (0-5); WBC,URINE >25 /HPF (0-5)
[2023-07-16 12:47] LABS: BACTERIA,URINE Many /HPF (None Seen); SQUAMOUS EPITHELIAL CELL,UR FEW Squamous (<= Few)
[2023-07-16 13:49] LABS: LDL CHOLESTEROL,DIRECT 88 mg/dL (75-193)
[2023-07-16 14:25] LABS: ESTIMATED AVERAGE GLUCOSE 100 mg/dL (70-100); HEMOGLOBIN A1c% 5.1 % (4.27-6.07)
== END 2023-07-16 08:13 | disposition home or self-care (01) ==
LOC: LAB.N 08:12
PROVIDERS: ATTEND Orthopaedic Surgery Adult Reconstructive Orthopaedic Surgery
DX: Z01.812 Encounter for preprocedural laboratory examination (principal); I10 Essential (primary) hypertension; Z13.220 Encounter for screening for lipoid disorders; E03.9 Hypothyroidism, unspecified; R77.0 Abnormality of albumin; E55.9 Vitamin D deficiency, unspecified; R73.9 Hyperglycemia, unspecified
CPT/HCPCS: 36415; 80053; 80061; 81001; 82040; 82306; 83036; 83721; 83735; 84134; 84439; 85025

== ENCOUNTER 2023-11-17 07:43 | Emergency (ER) | payer MEDICARE, BC ==
--- NOTE | 2023-11-17 08:00 | ED Physician Documentation ---
PD HPI DYSPNEA - Stated complaint Stated Complaint: HIGH HR - Chief complaint Chief Complaint: Cardiac - History obtained from History obtained from: Patient - History of Present Illness Timing - onset: How many hours ago (about 2 am awoke with fast heart rate, but had a cough and it seemed to slow to 70s. Awoke again about 5 am with fast atrial fib again and has persisted to now on arrival.), Today Timing - onset during: Sleep Timing - duration: Hours Timing - details: Abrupt onset, Still present Inciting event(s): No: Out of meds (but had stopped taking metoprolol a week ago as it made her feel lightheaded.) Associated symptoms: Palpitations. No: Fever, Cough, Wheezing, Chest pain / discomfort, Bilateral edema Similar symptoms before: Diagnosis (paroxysmal atrial fib) Recently seen: Clinic (Dr. Ji - with addition of metoprolol to diltiazemmm since had recurring episode.) PD PAST MEDICAL HISTORY - Past Medical History Past Medical History: Yes Cardiovascular: Hypertension, Atrial fibrillation Respiratory: None Endocrine/Autoimmune: HyPOthyroidism GI: GERD, Hepatitis BREWERY TECHNICIAN: None : Chronic bladder infection HEENT: None Psych: None Musculoskeletal: None Derm: None - Past Surgical History Past Surgical History: Yes General: Cholecystectomy, Appendectomy, Colonoscopy Ortho: Knee replacement HEENT: Other - Present Medications Home Medications: Ambulatory Orders Medication Instructions Recorded Confirmed Pantoprazole Sodium [Protonix] 40 mg PO DAILY 10/17/13 11/17/23 Levothyroxine Sodium 125 mcg PO DAILY 02/15/16 11/17/23 traZODone [Desyrel] 100 mg PO HS 09/05/22 11/17/23 Apixaban [Eliquis] 5 mg ORAL BID 11/17/23 11/17/23 Magnesium Oxide [Magnesium] 400 mg PO DAILY 11/17/23 11/17/23 Potassium Chloride [Klor-Con 10] 10 meq PO BID 11/17/23 11/17/23 - Allergies Allergies/Adverse Reactions: Allergies Allergy/AdvReac Type Severity Reaction Status Date / Time dextromethorphan Allergy Hallucinati Verified 11/17/23 07:47 ons lisinopril AdvReac Intermediate COUGH Verified 11/17/23 07:47 hydrocodone bitartrate * AdvReac Itching Verified 11/17/23 07:47 [From Vicodin] - Social History Does the pt smoke?: No Smoking Status: Never smoker Does the pt drink ETOH?: Yes ETOH Use: Wine Does the pt have substance abuse?: Yes Substance Use and Type: CBD oil / Products - Immunizations Immunizations are current?: Yes - POLST Patient has POLST: No PD ED PE NORMAL - Vitals Vital signs reviewed: Yes (monitor showing HR 140s irregular.) - General General: Alert and oriented X 3, No acute distress, Well developed/nourished - Neck Neck: Supple, no meningeal sign, No adenopathy - Cardiac Cardiac: No murmur - Respiratory Respiratory: No respiratory distress, Clear bilaterally - Derm Derm: Normal color, Warm and dry - Extremities Extremities: No edema, No calf tenderness / cord - Neuro Neuro: Alert and oriented X 3, No motor deficit, Normal speech Results - Vitals Vitals: Vital Signs - 24 hr 11/17/23 11/17/23 11/17/23 07:47 08:36 09:00 Temperature 36.4 C L 36.4 C L Heart Rate 136 H 145 H 65 Respiratory 17 14 14 Rate Blood Pressure 169/113 H 163/112 H 149/97 H O2 Saturation 97 98 95 11/17/23 11/17/23 11/17/23 09:10 09:15 09:20 Temperature Heart Rate 64 62 62 Respiratory 14 12 11 L Rate Blood Pressure 147/96 H 141/86 H 156/84 H O2 Saturation 95 96 99 11/17/23 11/17/23 09:25 09:51 Temperature 36.2 C L Heart Rate 61 66 Respiratory 13 22 Rate Blood Pressure 143/97 H 167/89 H O2 Saturation 97 100 Oxygen O2 Source Room air - EKG (time done) 07:54 EKG releavant findings:: EKG personally interpreted by author of this note. Relevant findings are: Rate: Rate (enter#) (140) Rhythm: Atrial fibrillation QRS: Normal Ischemia: Normal ST segments. No: ST elevation c/w ischemia, ST depression 09:07 EKG releavant findings:: EKG personally interpreted by author of this note. Relevant findings are: Rate: Rate (enter#) (63) Rhythm: NSR [place]: Normal Intervals: Normal CA QRS: Normal Ischemia: Normal ST segments. No: ST elevation c/w ischemia, ST depression - Labs Labs: Laboratory Tests 11/17/23 07:53 Sodium 135 Potassium 3.8 Chloride 97 L Carbon Dioxide 22 Anion Gap 16.0 H BUN 14 Creatinine 0.9 Estimated GFR (MDRD) 63 L Glucose 127 H Calcium 10.4 H Magnesium 1.2 L Total Bilirubin 0.4 AST 19 ALT 13 Alkaline Phosphatase 74 Total Protein 9.1 H Albumin 4.6 Globulin 4.5 H Albumin/Globulin Ratio 1.0 Lipase 37 Procedures - Procedural sedation Sedation prep: Informed consent, Time out completed, Last meal (dinner last evening), PE performed, ASA 2 - mild disease, IV O2 monitor, ET CO2 monitor, RT present Sedation Medications: propofol Mallampati classification: II Patient status during sedation: Responds to verbal, Vitals remained stable, Maintained airway, Recovered uneventfully Sedation recovery: Recovered uneventfully, Back to baseline Time in sedation (Minutes): 8 - Cardioversion - Major 1 Indication: Tachyarrhythmia Risks, benefits, alternatives explained to: Pt Prep: IV, O2, nuclear monitoring technician, Pulse ox, Airway equip CS via: Pads, AP approach Sync: Biphasic, 150j Post cardioversion rhythm: NSR Performed by: ED MD PD Medical Decision Making - ED course Complexity details: reviewed results (low Mag. Takes K and Mag supplements. pt prefers going to cardioversion. Given IV fluids and metoprolol dose for slowing prior, during set up.), re-evaluated patient (pt feeling okay after cardioversio n and feels okay heading home. ), considered differential (paroxysmal atrial fib with fast ventricular response. In no distress. Has had similar with cardioversion x 3. Has been off Metoprolol for week or so as makes her feel lightheaded. Had been with friend kailashor dinner last evening with 3 drinks during it. No URI. ), d/w patient Departure - Departure Disposition: 01 Home, Self Care Clinical Impression: Paroxysmal atrial fibrillation Condition: Stable Record reviewed to determine appropriate education?: Yes Instructions: Atrial Fibrillation Dc, ED Sedation Procedural Discon Follow-Up: Wanda John ARNP [Primary Care Provider] - Saroj Carrillo MD [Physician No Access] - Comments: You were cardioverted from A-fib back to sinus rhythm. I would have you continue with your diltiazem. I would resume your metoprolol but go with 12.5 mg which is half a tablet daily and see if that does okay without making you feel as tired. Your magnesium was fairly low at 1.2 and so that may be adding to some of your tiredness or such as well. Continue with your potassium and magnesium supplements. Increase the magnesium to twice a day concordant with your potassium. Stay well-hydrated. Minimal caffeine and alcohol. Follow-up with Dr. Carrillo in a couple weeks as planned. You can contact his office this coming week to let them know about the episode. Other considerations aside from the rate control medications you are currently on, would be rhythm control medications or trying to ablate the electrical impulse that initiates the A-fib (ablation). There are several options Dr. Carrillo can do. Forms: PCP List Discharge Date/Time: 11/17/23 10:12
[2023-11-17] MEDS: SODIUM CHLORIDE 0.9% 1,000 ML IV STA (08:35)
[2023-11-17] MEDS: METOPROLOL 5 MG/5 ML VIAL IVP STA (08:36)
[2023-11-17 08:41] LABS: MAGNESIUM 1.2 mg/dL (1.7-2.3)
[2023-11-17 08:50] LABS: ALBUMIN 4.6 g/dL (3.2-5.5); BILIRUBIN,TOTAL 0.4 mg/dL (0.2-1.0); CALCIUM 10.4 mg/dL (8.5-10.3); CREATININE 0.9 mg/dL (0.6-1.3); POTASSIUM 3.8 mmol/L (3.5-4.5); TOTAL PROTEIN 9.1 g/dL (6.4-8.9)
[2023-11-17] MEDS: PROPOFOL 200 MG/20 ML VIAL IVP STA (09:06)
[2023-11-17] MEDS: MAGNESIUM SULFATE 2 GRAM 2 GM/50 ML BAG IV ONE (09:16)
[2023-11-17 09:59] VITALS: BP 167/89; O2SAT 100
== END 2023-11-17 10:12 | disposition home or self-care (01) ==
LOC: ED 07:43
DX: I48.0 Paroxysmal atrial fibrillation (principal); Z79.01 Long term (current) use of anticoagulants; E83.42 Hypomagnesemia; T44.7X6A Underdosing of beta-adrenoreceptor antagonists, initial encounter; Z91.128 Patient's intentional underdosing of medication regimen for other reason
CPT/HCPCS: 36415; 80053; 83690; 83735; 92960; 93005